=== PATIENT | male | born 1965 | race Caucasian/White ===

== ENCOUNTER 2017-12-15 14:42 | Emergency (ER) | payer OTHER ==
[~2017-12-15] VITALS: Ht 182.9 cm; Wt 65.8 kg
[~2017-12-15 14:42] MED LIST: CLONAZEPAM 1 MG1 M1 PO; FENTANYL PA50 MCG/HR; OXYCONTIN20 M1 PO
[2017-12-15] MEDS ORDERED: MOBIC15 MG PO (15:14)
== END 2017-12-15 15:40 | disposition home or self-care (01) ==
LOC: ER 14:42
DX: G89.29 Other chronic pain (principal); M79.605 Pain in left leg; F41.9 Anxiety disorder, unspecified; F17.210 Nicotine dependence, cigarettes, uncomplicated; Z88.5 Allergy status to narcotic agent